=== PATIENT | male | born 1955 | race African-American/Black ===

== ENCOUNTER 2019-02-22 14:45 | Emergency (ER) | payer OTHER, SELFPAY ==
[~2019-02-22] VITALS: Ht 182.9 cm; Wt 77.0 kg
[~2019-02-22 14:45] MED LIST: ALBU17AE2 IH; BENA5TAB26 PO; METF-960 PO; OXYC-158 PO
[2019-02-22 15:09] LABS: GLUCOSE,POINT OF CARE 293 MG/DL (70-110)
[2019-02-22] MEDS ORDERED: ACETAMINOPHEN 500 MG TABLET PO ONE (16:30)
[2019-02-22 16:35] VITALS: BP 143/79
== END 2019-02-22 16:41 | disposition home or self-care (01) ==
LOC: EMS 14:48
DX: H66.92 Otitis media, unspecified, left ear (principal); E11.9 Type 2 diabetes mellitus without complications; I10 Essential (primary) hypertension; J45.909 Unspecified asthma, uncomplicated; G89.29 Other chronic pain; M54.9 Dorsalgia, unspecified; F17.210 Nicotine dependence, cigarettes, uncomplicated; Z88.0 Allergy status to penicillin; Z79.899 Other long term (current) drug therapy; Z98.890 Other specified postprocedural states
CPT/HCPCS: 99406